=== PATIENT | male | born 1990 | race Hispanic/Latino ===

== ENCOUNTER 2022-11-05 02:40 | Observation (INO) | payer BC, OTHER ==
[2022-11-05] MEDS ORDERED: Ketorolac Tromethamine 30 MG/ML VIAL ONE ×2 (02:50→03:36)
[2022-11-05] MEDS ORDERED: Ondansetron PF 4 MG/2 ML Vial ONE ×2 (02:50→13:08)
[2022-11-05] MEDS ORDERED: Morphine 4 MG/ML VIAL ONE (03:06)
[2022-11-05 03:33] LABS: #Eosinphils 0.1 thou/uL (0.0-0.7); #Monocytes 0.9 thou/uL (0.11-0.59); #Neutrophils 6.9 thou/uL (1.40-6.50); %Basophils 0.2 % (0.0-1.0); %Eosinophils 0.7 % (0.0-10.0); %Lymphocytes 21.5 % (21.0-51.0); %Monocytes 9.2 % (0.0-10.0); %Neutrophils 67.9 % (42.0-75.0); Hematocrit 42.2 % (42.0-52.0); Hemoglobin 14.9 g/dL (14.0-18.0); Mean Corpuscular HGB CONC 35.3 g/dL (32.0-36.0); Mean Corpuscular Hemoglobin 31.9 pg (27.0-31.0); Mean Corpuscular Volume 90.4 fl (78.0-98.0); Mean Platelet Volume 10.6 fL (7.4-10.4); Platelet Count 224 10x3/uL (130-400); RBC Distribution Width 11.8 % (11.5-14.5); Red Blood Cell (RBC) Count 4.67 mill/uL (4.70-6.10); White Blood Cell (WBC) Count 10.1 10x3/uL (4.8-10.8)
[2022-11-05 03:56] LABS: ALT (SGPT) 64 U/L (8-55); AST (SGOT) 32 U/L (5-34); Albumin 4.4 g/dL (3.5-5.0); Alkaline Phosphatase 99 U/L (40-110); Anion Gap 14 mmol/L (10-20); BUN (Urea Nitrogen) 20 mg/dL (8.9-20.6); Bilirubin, Total 0.5 mg/dL (0.2-1.2); Calc. Creatinine Clearance 0 mL/min (70-130); Calcium 9.8 mg/dL (7.8-10.44); Carbon Dioxide 22 mmol/L (22-29); Chloride 103 mmol/L (98-107); Estimated GFR 52; Globulin 3.1 g/dL (2.4-3.5); Glucose 91 mg/dL (70-105); Lipase 51 U/L (8-78); Potassium 3.4 mmol/L (3.5-5.1); Protein, Total 7.5 g/dL (6.0-8.3); Sodium 136 mmol/L (136-145)
[2022-11-05] MEDS ORDERED: Morphine 2 MG/ML VIAL ONE ×2 (04:12→08:12)
[2022-11-05 04:23] LABS: Bacteria/HPF None Seen HPF (None Seen); Bilirubin Negative (Negative); Blood, Urine Negative (Negative); CAUTI Indications for Culture Pelvic or flank pain; Clarity Clear (Clear); Glucose, Urine (Dipstick) Normal (Negative); Ketone, Urine Negative (Negative); Leukocyte Negative Leu/uL (Negative); Nitrite Negative (Negative); Protein, Urine (Dipstick) Negative (Neg-Trace); RBC/HPF 0-3 HPF (0-3); Specific Gravity, Urine 1.021 (1.002-1.036); Squamous Epithelial None Seen HPF (0-3); Urobilinogen Normal mg/dL (Less than 2); WBC/HPF 0-3 HPF (0-3)
[2022-11-05 04:25] LABS: Urine Culture Reflex No No
[2022-11-05] MEDS: Sodium Chloride 0.9% 1,000 ML IV SCH (09:11)
[2022-11-05 09:24] VITALS: BMI 31.5
[2022-11-05] MEDS ORDERED: Morphine 4 MG/ML VIAL SLOW IVP SCH (10:00)
[2022-11-05] MEDS ORDERED: DEXTROAMPHETAMINE PO PRN (10:14)
[2022-11-05] MEDS ORDERED: AMPHETAMINE PO PRN (10:14)
[2022-11-05] MEDS ORDERED: Dextroamphetamine/Amphetamine [Adderall] 10 MG Tablet PO PRN (10:18)
[2022-11-05] MEDS ORDERED: fentaNYL 50 mcg/mL 1 mL Vial ONE (13:01)
[2022-11-05] MEDS ORDERED: SUGAMMADEX SODIUM 200 MG/2 ML VIAL ONE (13:01)
[2022-11-05] MEDS ORDERED: Famotidine/PF 20 mg/2ml Vial ONE (13:01)
[2022-11-05] MEDS ORDERED: Meperidine HCl/PF 25 MG/ML VIAL ONE (13:01)
[2022-11-05] MEDS ORDERED: Sodium Chloride 0.9% 100 ML ONE (13:02)
[2022-11-05] MEDS ORDERED: CEFAZOLIN 2 GM VIAL ONE (13:02)
[2022-11-05] MEDS ORDERED: Iopamidol 30 ML ONE (13:03)
[2022-11-05] MEDS ORDERED: Dexamethasone 20 MG/5 ML VIAL ONE (13:08)
[2022-11-05] MEDS ORDERED: PROPOFOL 200 MG/20 ML VIAL ONE (13:08)
[2022-11-05] MEDS ORDERED: Lidocaine 1% PF 5 ML VIAL ONE (13:08)
[2022-11-05] MEDS ORDERED: Metoclopramide HCl 10 MG/2 ML VIAL ONE (13:08)
[2022-11-05] MEDS ORDERED: Promethazine HCl 25 MG/ML VIAL IM PRN (13:19)
[2022-11-05] MEDS ORDERED: Ondansetron HCl/PF 4 MG/2 ML Vial IVP PRN (13:19)
[2022-11-05] MEDS: Morphine 2 MG/ML VIAL SLOW IVP PRN ×2 (15:11→22:01)
[2022-11-05] MEDS ORDERED: Phenazopyridine HCl 100 MG TAB PO PRN (17:17)
[2022-11-05] MEDS: HYDROcodone/Acetaminophen 5/325 mg Tablet PO PRN (20:28)
[2022-11-05] MEDS ORDERED: Tamsulosin HCl 0.4 MG CAP PO SCH (21:00)
[2022-11-06] MEDS: Sodium Chloride 0.9% 1,000 ML IV SCH (04:11)
[2022-11-06 07:49] LABS: #Monocytes 0.6 thou/uL (0.11-0.59); #Neutrophils 12.5 thou/uL (1.40-6.50); %Basophils 0.1 % (0.0-1.0); %Lymphocytes 6.5 % (21.0-51.0); %Monocytes 4.2 % (0.0-10.0); %Neutrophils 88.4 % (42.0-75.0); Hematocrit 42.5 % (42.0-52.0); Hemoglobin 14.5 g/dL (14.0-18.0); Mean Corpuscular HGB CONC 34.1 g/dL (32.0-36.0); Mean Corpuscular Hemoglobin 31.8 pg (27.0-31.0); Mean Corpuscular Volume 93.2 fl (78.0-98.0); Mean Platelet Volume 10.7 fL (7.4-10.4); Platelet Count 224 10x3/uL (130-400); RBC Distribution Width 11.9 % (11.5-14.5); Red Blood Cell (RBC) Count 4.56 mill/uL (4.70-6.10); White Blood Cell (WBC) Count 14.1 10x3/uL (4.8-10.8)
[2022-11-06 08:04] LABS: Anion Gap 11 mmol/L (10-20); BUN (Urea Nitrogen) 14 mg/dL (8.9-20.6); Calc. Creatinine Clearance 136 mL/min (70-130); Calcium 9.7 mg/dL (7.8-10.44); Carbon Dioxide 26 mmol/L (22-29); Chloride 105 mmol/L (98-107); Estimated GFR 91; Glucose 114 mg/dL (70-105); Potassium 4.7 mmol/L (3.5-5.1); Sodium 137 mmol/L (136-145)
[2022-11-06] MEDS: Morphine 2 MG/ML VIAL SLOW IVP PRN (09:30)
[2022-11-06 09:47] VITALS: BP 142/93; TEMP 98.6
[2022-11-06] MEDS: HYDROcodone/Acetaminophen 5/325 mg Tablet PO PRN (12:02)
== END 2022-11-06 13:00 | disposition home or self-care (01) ==
LOC: ERS 02:40 → T4-A 07:42
PROVIDERS: ADMIT Internal Medicine; ATTEND Internal Medicine
PROC: 0TC78ZZ Extirpation of Matter from Left Ureter, Via Natural or Artificial Opening Endoscopic (ICD-10-PCS; principal; 2022-11-06)
PROC: 0T778DZ Dilation of Left Ureter with Intraluminal Device, Via Natural or Artificial Opening Endoscopic (ICD-10-PCS; 2022-11-06)
DX: N20.1 Calculus of ureter (principal); N13.30 Unspecified hydronephrosis; F90.9 Attention-deficit hyperactivity disorder, unspecified type; J45.909 Unspecified asthma, uncomplicated; N17.9 Acute kidney failure, unspecified; E87.6 Hypokalemia; Z90.49 Acquired absence of other specified parts of digestive tract; Z79.899 Other long term (current) drug therapy
CPT/HCPCS: 36416; 74176; 74420; 80048; 80053; 81001; 82365; 83690; 85025; 88300; 96361; 96374; 96375; 96376; C2617; J1100; J1885; J2175; J2270; J2272; J2405; J2704; J2765; J3010; J3490; J7050; Q9967; S0028